=== PATIENT | female | born 1960 ===

== ENCOUNTER 2020-12-27 05:35 | Day surgery (SDC) | payer OTHER ==
[~2020-12-27 05:35] MED LIST: COZAAR50 MG PO; DIGOX125 MCG PO; FLECAINIDE ACE100 MG PO; GABAPENTIN400 MG PO; LORAZEPAM0.5 MG PO; TOPROL XL25 M1 PO
[2020-12-27] MEDS ORDERED: PERCOCET 5-3251 EACH PO (07:43)
[2020-12-27] MEDS ORDERED: COLACE100 MG PO (07:43)
== END 2020-12-27 21:10 | disposition home or self-care (01) ==
LOC: CIR.AMB 05:35
PROVIDERS: ATTEND Surgery
DX: K59.02 Outlet dysfunction constipation (principal); K56.1 Intussusception; N81.6 Rectocele; Z20.822 Contact with and (suspected) exposure to COVID-19